=== PATIENT | male | born 2000 | race Caucasian/White ===

== ENCOUNTER → 2023-10-14 | Emergency (ER) | payer SELFPAY ==
[2023-10-14 23:41] LABS: Hematocrit 45.6 % (39.6-49.0); Lymphocytes % 13.2 % (15.3-44.8); MCV 79.7 fL (80-100); MPV 9.7 fL (7.6-11.3); Platelets 231 thou/uL (152-406); RBC Red Blood Cell Count 5.72 M/uL (4.33-5.43)
[2023-10-15 01:21] LABS: Specific Gravity < 1.005 (1.005-1.030); Urine Bilirubin NEGATIVE (Negative); Urine Blood Negative (Negative); Urine Clarity Clear (Clear); Urine Color Colorless (Yellow); Urine Glucose NEGATIVE (Negative); Urine Protein NEGATIVE (Negative); Urine Urobilinogen Normal (Normal); Urine pH 6.5 (5.0-7.0)
[2023-10-15 03:39] LABS: Potassium 3.3 mEq/L (3.5-5.1)
[2023-10-15 03:40] LABS: Albumin 3.3 g/dL (3.4-5.0); Bilirubin Total 0.5 mg/dL (0.2-1.0); Protein, Total 8.2 g/dL (6.4-8.2)
--- NOTE | 2023-10-15 04:53 | EDPHYS ---
Physician Documentation [facility] Name: Tariq Delgado Age: 22 yrs Sex: Male : 2000 Arrival Date: 10/14/2023 Time: 21:58 Bed 5 Private MD: ED Physician Villa Escalona HPI: 10/14 22:40 This 22 yrs old Male presents to ER via Ambulatory with complaints of Swollen Glands, cp Mother is concerned patient has possible yeast infection. 22:40 The patient or guardian complains of enlarged lymph nodes. The symptoms are located cp left side of neck. 22:40 Onset: The symptoms/episode began/occurred at an unknown time. Context: The neck cp injury/problem resulted from from unknown cause. Associated signs and symptoms: Pertinent positives: fatigue over the past month, Pertinent negatives: fever, headache, weight loss, change in bowel habits. Severity of symptoms: in the emergency department the symptoms are unchanged, despite home interventions. Historical: - Allergies: 22:34 No Known Allergies; vc1 - Home Meds: 22:34 None [Active]; vc1 - PMHx: 22:34 None; vc1 - PSHx: 22:34 None; vc1 - Immunization history:: Adult Immunizations up to date, Flu vaccine is not up to date. - Social history:: Smoking status: Patient denies any tobacco usage or history of. ROS: 22:45 Constitutional: Positive for fatigue, malaise, Negative for body aches, chills, fever, cp poor PO intake, 22:45 Eyes: Negative for injury, pain, redness, and discharge, cp 22:45 ENT: Negative for drainage from ear(s), ear pain, sore throat, difficulty swallowing, difficulty handling secretions, 22:45 Cardiovascular: Negative for chest pain, palpitations, 22:45 Respiratory: Positive for shortness of breath, Negative for cough, wheezing, 22:45 Abdomen/GI: Negative for abdominal pain, vomiting, diarrhea, constipation, anorexia, black/tarry stool, rectal bleeding, 22:45 Neuro: Negative for altered mental status, headache, syncope, 22:45 All other systems are negative, Exam: 22:30 Constitutional: The patient appears in no acute distress, alert, awake, cp non-diaphoretic, non-toxic, well developed, well nourished, 22:30 Head/Face: Normocephalic, atraumatic. cp 22:30 Eyes: Periorbital structures: appear normal, Conjunctiva: normal, no exudate, no injection, Sclera: no appreciated abnormality, Lids and lashes: appear normal, bilaterally, 22:30 ENT: External ear(s): are unremarkable, Ear canal(s): are normal, clear, TM's: dullness, bilaterally, Nose: is normal, Mouth: Lips: moist, Oral mucosa: pink and intact, moist, Posterior pharynx: Airway: no evidence of obstruction, patent, Tonsils: are normal in appearance, swelling, is not appreciated, erythema, is not appreciated, exudate, is not appreciated, 22:30 Neck: Lymph nodes: lymphadenopathy is appreciated, left side of neck, 22:30 Chest/axilla: Inspection: normal, Palpation: is normal, no crepitus, no tenderness, 22:30 Cardiovascular: Rate: normal, Rhythm: regular, 22:30 Respiratory: the patient does not display signs of respiratory distress, Respirations: normal, no use of accessory muscles, no retractions, labored breathing, is not present, Breath sounds: are clear throughout, no decreased breath sounds, no stridor, no wheezing, 22:30 Abdomen/GI: Inspection: abdomen appears normal, Bowel sounds: active, all quadrants, Palpation: abdomen is soft and non-tender, in all quadrants, no appreciated organomegaly, 22:30 Back: pain, is absent, ROM is normal, 22:30 Skin: no rash present. 22:30 Neuro: Orientation: to person, place \T\ time. Mentation: is normal, Motor: moves all fours, strength is normal, Vital Signs: 22:30 BP 137 / 86; Pulse 95; Resp 17; Pulse Ox 99% ; Weight 63.5 kg; Height 5 ft. 10 in. ; vc1 Pain 0/10; 23:16 BP 133 / 86; Pulse 91; Pulse Ox 100% on R/A; nw1 23:45 BP 128 / 86; Pulse 87; Pulse Ox 100% on R/A; nw10/15 00:00 BP 138 / 98; Pulse 93; Resp 19; Pulse Ox 100% on R/A; nw1 00:15 BP 137 / 106; Pulse 95; Resp 19; Pulse Ox 100% on R/A; nw1 00:30 BP 132 / 98; Pulse 95; Pulse Ox 100% on R/A; nw1 01:00 BP 127 / 109; Pulse 95; Resp 17; Pulse Ox 100% on R/A; nw1 01:30 BP 127 / 93; Pulse 93; Resp 18; Pulse Ox 100% ; nw1 02:00 BP 134 / 91; Pulse 93; Resp 16; Pulse Ox 100% ; nw1 02:30 BP 125 / 89; Pulse 87; Resp 19; Pulse Ox 100% ; nw1 03:00 BP 137 / 96; Pulse 99; Pulse Ox 100% on R/A; nw1 03:30 BP 130 / 96; Pulse 91; Resp 19; Pulse Ox 100% ; nw1 04:00 BP 153 / 84; Pulse 95; Pulse Ox 100% on R/A; nw1 04:30 BP 129 / 79; Pulse 92; Resp 18; Pulse Ox 100% on R/A; nw1 05:00 BP 139 / 98; Pulse 106; Pulse Ox 100% on R/A; nw1 05:30 BP 133 / 91; Pulse 106; Resp 19; Pulse Ox 99% ; nw1 06:09 BP 137 / 92; Pulse 102; Resp 19; Pulse Ox 100% on R/A; nw1 10/14 22:30 Body Mass Index 20.09 (63.50 kg, 177.8 cm) [facility] 10/14 22:30 Pain Scale: Adult vc1 Bethany Coma Score: 10/14 23:16 Eye Response: spontaneous(4). Motor Response: obeys commands(6). Verbal Response: nw1 oriented(5). Total: 15. MDM: 22:23 Patient medically screened. cp 10/15 00:00 Differential diagnosis: strep throat, malignancy, mono, abscess. cp 05:36 Data reviewed: vital signs, nurses notes, lab test result(s), radiologic studies, CT cp scan, plain films. Management of patient was discussed with the following: Hospitalist: DR Coleman \T\[facility]. Counseling: I had a detailed discussion with the patient and/or guardian regarding the historical points, exam findings, and any diagnostic results supporting the discharge/admit diagnosis, lab results, radiology results, the need to transfer to another facility. 10/14 22:32 Order name: Strep cp 10/14 22:32 Order name: [place] Screen Profile; Complete Time: 05:03 cp 10/14 22:32 Order name: CBC with Diff; Complete Time: 00:09 cp 10/15 00:09 Interpretation: Normal except: WBC 22.60; RBC 5.72; MCV 79.7; MCH 26.8; MACRINA% 77.9; LYM% cp 13.2; NEUT A 17.6; MNA 1.5. 10/14 22:32 Order name: CMP; Complete Time: 05:03 cp 10/15 05:05 Interpretation: Normal except: K 3.3; BUN 4; AST 7; ALT 14; ALB 3.3; GLOB 4.9; A/G 0.7. cp 10/14 22:32 Order name: Urinalysis w/ reflexes; Complete Time: 02:12 10/14 22:32 Order name: SARS-COV-2 RT PCR; Complete Time: 00:17 cp 10/15 00:41 Order name: Throat Culture EDHI 10/14 22:32 Order name: XRAY Chest Pa And Lat (2 Views) 10/15 01:08 Order name: CT Chest, Abdomen, Pelvis - W/Contrast 10/14 22:32 Order name: IV Saline Lock; Complete Time: 23:21 cp 10/14 22:32 Order name: Labs collected and sent; Complete Time: 23:21 cp Administered Medications: No medications were administered Disposition Summary: 10/15/23 04:52 Transfer Ordered Notes: Transfer Location: [facility] cp Reason: Higher level of care cp Condition: Stable cp Problem: new cp Symptoms: have improved cp Accepting Physician: DR Tyler(10/15/23 07:12) nw1 Diagnosis - Elevated white blood cell count, unspecified cp - Enlarged lymph nodes, unspecified cp - Mass of Mediastinum cp Forms: - Medication Reconciliation Form cp - SBAR form cp Signatures: Dispatcher [employer] EDHI Villa Putnam PA PA cp Calcote, Vanessa, RN RN vc1 Dayana Whitt RN RN nw1 Corrections: (The following items were deleted from the chart) 05:46 04:52 Doctor cp cp 05:48 05:36 Management of patient was discussed with the following: Hospitalist: DR Thurman cp \T\[facility]. cp 07:12 05:46 DR Tyler cp nw1
--- NOTE | 2023-10-15 04:53 | ER ---
Nurse's Notes [facility] Name: Tariq Delgado Age: 22 yrs Sex: Male : 2000 Arrival Date: 10/14/2023 Time: 21:58 Bed 5 Private MD: Diagnosis: Elevated white blood cell count, unspecified;Enlarged lymph nodes, unspecified;Mass of Mediastinum Presentation: 10/14 22:30 Chief complaint: Parent and/or Guardian states: He's been sick since and has vc1 a lump in the front of his neck and on the left side of his neck. Coronavirus screen: Vaccine status: Patient reports being unvaccinated. fatigue, fever, vomiting. Client presents with at least one sign or symptom that may indicate coronavirus-19. Ebola Screen: Patient negative for fever greater than or equal to 101.5 degrees Fahrenheit, and additional compatible Ebola Virus Disease symptoms Patient denies exposure to infectious person. Patient denies travel to an Ebola-affected area in the 21 days before illness onset. No symptoms or risks identified at this time. Initial Sepsis Screen: Does the patient meet any 2 criteria? No. Patient's initial sepsis screen is negative. Does the patient have a suspected source of infection? No. Patient's initial sepsis screen is negative. Risk Assessment: Do you want to hurt yourself or someone else? Patient reports no desire to harm self or others. Onset of symptoms was September 11, 2023. 22:30 Method Of Arrival: Ambulatory vc1 22:30 Acuity: HELGA 3 vc1 10/15 00:30 Acuity: HELGA 2 nw1 Triage Assessment: 10/14 22:36 General: Appears. vc1 22:40 General: Appears in no apparent distress. uncomfortable, ill, slender, Behavior is vc1 calm, cooperative, appropriate for age, Reports fever for > 3 days, feeling ill for > 3 days, fatigue for >3 days. Pain: Denies pain. EENT: darkness under eyes. Reports nasal congestion. Neuro: Level of Consciousness is awake, alert, obeys commands, lethargic, Oriented to person, place, time, situation, Appropriate for age. Cardiovascular: No deficits noted. Patient's skin is warm and dry. Respiratory: Reports shortness of breath cough that is pain with cough Airway is patent Respiratory effort is even, unlabored, Respiratory pattern is regular, symmetrical, Onset: The symptoms/episode began/occurred at an unknown time. GI: No deficits noted. No signs and/or symptoms were reported involving the gastrointestinal system. : No deficits noted. No signs and/or symptoms were reported regarding the genitourinary system. Derm: lymph nodes palpated and enlarged. Musculoskeletal: No deficits noted. No signs and/or symptoms reported regarding the musculoskeletal system. Historical: - Allergies: 22:34 No Known Allergies; vc1 - Home Meds: 22:34 None [Active]; vc1 - PMHx: 22:34 None; vc1 - PSHx: 22:34 None; vc1 - Immunization history:: Adult Immunizations up to date, Flu vaccine is not up to date. - Social history:: Smoking status: Patient denies any tobacco usage or history of. Screenin:35 [facility] ED Fall Risk Assessment (Adult) History of falling in the last 3 months, vc1 including since admission No falls in past 3 months (0 pts) Confusion or Disorientation No (0 pts) Intoxicated or Sedated No (0 pts) Impaired Gait No (0 pts) Mobility Assist Device Used No (0 pt) Altered Elimination No (0 pt) Score/Fall Risk Level 0 - 2 = Low Risk Oriented to surroundings, Maintained a safe environment, Educated pt \\T\\ family on fall prevention, incl call for assistance when getting out of bed. Abuse screen: Denies threats or abuse. Nutritional screening: No deficits noted. Tuberculosis screening: No symptoms or risk factors identified. Assessment: 22:43 Reassessment: Pt noted in room 5 at this time. No report received. Assuming patient at nw1 this time. 22:46 Reassessment: Lab called for COVID PCR test to complete specimen collections. la4 22:57 Reassessment: Pt to Xray at this time via wheelchair and marine services technician. nw1 23:03 Reassessment: Pt returned from Xray via wheelchair and marine services technician. nw1 23:03 General: Appears in no apparent distress. comfortable, well groomed, well developed, nw1 well nourished, Behavior is calm, cooperative, appropriate for age. Pain: Complains of pain in thyroid cartilage. Neuro: Level of Consciousness is awake, alert, obeys commands, Oriented to person, place, time, situation, Appropriate for age. Cardiovascular: Reports None Denies chest pain, diaphoresis, fatigue, lightheadedness, nausea, palpitations, shortness of breath, syncope, vomiting. Respiratory: No deficits noted. Denies cough, shortness of breath labored breathing, pain with respiration, pain with cough, pain with movement, air hunger. GI: No deficits noted. No signs and/or symptoms were reported involving the gastrointestinal system. : No deficits noted. No signs and/or symptoms were reported regarding the genitourinary system. EENT: Throat patient states lump in throat since [place]. . Derm: No deficits noted. No signs and/or symptoms reported regarding the dermatologic system. Musculoskeletal: No deficits noted. No signs and/or symptoms reported regarding the musculoskeletal system. 10/15 03:06 Reassessment: Lab called due to missing CMP. Per "D" in lab, blood is not found. Red, nw1 Green, Blue, and Lavender tube was sent via tubing system at 2344 on 10/13/23. Charge nurse Emperatriz notified of this. 03:17 Reassessment: Blood (red and green top) obtained by , [facility] at this time and sent to [facility] lab via tubing system at this time. 06:08 Reassessment: Report attempted [id number]. Nurse unavailable at this time. Vital Signs: 10/14 22:30 BP 137 / 86; Pulse 95; Resp 17; Pulse Ox 99% ; Weight 63.5 kg; Height 5 ft. 10 in. ; vc1 Pain 0/10; 23:16 BP 133 / 86; Pulse 91; Pulse Ox 100% on R/A; 23:45 BP 128 / 86; Pulse 87; Pulse Ox 100% on R/A; 10/15 00:00 BP 138 / 98; Pulse 93; Resp 19; Pulse Ox 100% on R/A; 00:15 BP 137 / 106; Pulse 95; Resp 19; Pulse Ox 100% on R/A; 00:30 BP 132 / 98; Pulse 95; Pulse Ox 100% on R/A; nw 01:00 BP 127 / 109; Pulse 95; Resp 17; Pulse Ox 100% on R/A; 01:30 BP 127 / 93; Pulse 93; Resp 18; Pulse Ox 100% ; nw1 02:00 BP 134 / 91; Pulse 93; Resp 16; Pulse Ox 100% ; nw1 02:30 BP 125 / 89; Pulse 87; Resp 19; Pulse Ox 100% ; nw1 03:00 BP 137 / 96; Pulse 99; Pulse Ox 100% on R/A; nw1 03:30 BP 130 / 96; Pulse 91; Resp 19; Pulse Ox 100% ; nw1 04:00 BP 153 / 84; Pulse 95; Pulse Ox 100% on R/A; nw1 04:30 BP 129 / 79; Pulse 92; Resp 18; Pulse Ox 100% on R/A; nw1 05:00 BP 139 / 98; Pulse 106; Pulse Ox 100% on R/A; nw1 05:30 BP 133 / 91; Pulse 106; Resp 19; Pulse Ox 99% ; nw1 06:09 BP 137 / 92; Pulse 102; Resp 19; Pulse Ox 100% on R/A; nw1 10/14 22:30 Body Mass Index 20.09 (63.50 kg, 177.8 cm) [facility] 10/14 22:30 Pain Scale: Adult vc1 Bethany Coma Score: 10/14 23:16 Eye Response: spontaneous(4). Motor Response: obeys commands(6). Verbal Response: nw1 oriented(5). Total: 15. ED Course: 22:04 Patient arrived in ED. jj6 22:18 Villa Putnam PA is PHCP. cp 22:18 Villa Escalona MD is Attending Physician. cp 22:34 Triage completed. vc1 22:35 Arm band placed on left wrist. vc1 22:35 Patient has correct armband on for positive identification. Bed in low position. Call vc1 light in reach. Pulse ox on. NIBP on. 23:00 XRAY Chest Pa And Lat (2 Views) In Process Unspecified. EDMS 23:03 Provided Education on: POC. nw1 23:03 No provider procedures requiring assistance completed. Missed attempt(s): 20 gauge in nw1 right forearm. blood obtained. Notified Villa WASHBURN regarding blown IV. Per [facility], patient does not require IV at this time. . Bleeding controlled, band aid applied, catheter tip intact. 23:21 CBC with Diff Sent. nw 23:21 CMP Sent. nw 23:21 SARS-COV-2 RT PCR Sent. nw 23:21 Strep Sent. nw1 23:21 Cole Screen Profile Sent. nw10/15 03:18 Inserted saline lock: 20 gauge in right antecubital area, using aseptic technique. mc5 Blood collected. 03:58 CT Chest, Abdomen, Pelvis - W/Contrast In Process Unspecified. EDMS 04:45 initiated transfer with [facility]. rv1 05:57 administrative approval given to [facility] by Arielle Downing/ patient has been accepted eb to [facility] bed 744/ Dr. Tyler has accepted the patient in transfer/ report to be called [phone]. 06:20 Dayana Whitt, RN is Primary Nurse. nw1 06:24 Report given to MAYURI Meade. nw 06:47 [facility] called for transport they are unable to take transfer / [facility] eb called ETA 25 min. Administered Medications: No medications were administered Medication: 10/14 22:36 VIS not applicable for this client. vc1 Outcome: 10/15 04:52 ER care complete, transfer ordered by MD. cp 06:39 Transferred by ground EMS to [facility], Transfer form completed. nw1 X-rays sent w/ patient. 06:39 Condition: stable 06:39 Instructed on the need for admit, 07:12 Patient left the ED. nw1 Signatures: Dispatcher [employer] EDKY Villa Putnam PA PA cp Botello, Elizabeth eb Jeffries, Jennifer jj6 Emperatriz Dee RN RN vc1 Dianne Babcock rv1 Elise Freeman 5 Maurice Alvarez RN RN la4 Dayana Whitt, MAYURI RN nw1 Corrections: (The following items were deleted from the chart) 10/14 22:57 22:56 Reassessment: nw1 10/15 05:51 04:45 initiated tranfer rv1 rv1 05:52 04:45 initiated transfer rv1 rv1
[2023-10-15 09:20] VITALS: O2SAT 100
[2023-10-15 09:53] VITALS: BP 137/92
--- NOTE | 2023-10-16 11:13 | RAD REPORT ---
EXAM DESCRIPTION: CT - Chest Abdomen Pelvis W Cont - 10/15/2023 7:16 am CLINICAL HISTORY: The patient is 22 years old and is Male; COUGH TECHNIQUE: Axial computed tomography images of the chest, abdomen and pelvis with intravenous contra st. Sagittal and coronal reformatted images were created and reviewed. This CT exam was performed using one or more of the following dose reduction techniques: automated exposure control, adjustme nt of the mA and/or kV according to patient size, and/or use of iterative reconstruction technique. COMPARISON: No relevant prior studies available. FINDINGS: CHEST: Lungs: Unremarkable. No mass. No consolidation. Pleural space: Unremarkable. No significant effusion. No pneumothorax. Heart: Unremarkable. No cardiomegaly. No significant pericardial effusion. No significant c oronary artery calcifications. Mediastinum: There is a 4 x 6 x 10 cm solid and cystic mass in the anterior mediastinum. Bulky mediastinal lymphadenopathy extending into the lower neck. ABDOMEN: Liver: Unremarkable. No mass. Gallbladder and bile ducts: Unremarkable. No calcified stones. No ductal dilation. Pancreas: Unremarkable. No ductal dilation. No mass. Spleen: Unremarkable. No splenomegaly. Adrenals: Unremarkable. No mass. Kidneys and ureters: Unremarkable. No hydronephrosis. No solid mass. Stomach and bowel: Unremarkable. No obstruction. No mucosal thickening. PELVIS: Appendix: No findings to suggest acute appendicitis. Bladder: Unremarkable. No mass. Reproductive: Unremarkable as visualized. CHEST, ABDOMEN and PELVIS: Intraperitoneal space: Unremarkable. No significant fluid collection. No free air. Bones/joints: Unremarkable. No acute fracture. No dislocation. Soft tissues: Gynecomastia. Vasculature: Unremarkable. No aortic aneurysm. Lymph nodes: Enlarged 1.3 cm right axillary lymph node. IMPRESSION: 1. There is a 4 x 6 x 10 cm solid and cystic mass in the anterior mediastinum. 2. Bulky mediastinal lymphadenopathy extending into the lower neck. 3. Enlarged 1.3 cm right axillary lymph node. Electronically signed by: Juan Chase MD 10/15/2023 04:36 AM NUT SHELLER Due to temporary technical issues with the PACS/Fluency reporting system, reports are being signed by the in house radiologist without review as a courtesy to ensure prompt reporting. The interpreting r adiologist is fully responsible for the content of the report.
--- NOTE | 2023-10-16 11:22 | RAD REPORT ---
EXAM DESCRIPTION: RAD - Chest Pa And Lat (2 Views) - 10/14/2023 10:59 pm CLINICAL HISTORY: COUGH TECHNIQUE: Frontal and lateral views of the chest. COMPARISON: No relevant prior studies available. FINDINGS: Lungs: Unremarkable. No consolidation. Pleural space: Unremarkable. No pneumothorax. Heart: Unremarkable. No cardiomegaly. Mediastinum: Unremarkable. Normal mediastinal contour. Bones/joints: Unremarkable. No acute fracture. IMPRESSION: No acute disease. Electronically signed by: Thien Neves MD 10/14/2023 11:23 PM COMBINER OPERATOR Due to temporary technical issues with the PACS/Fluency reporting system, reports are being signed by the in house radiologist without review as a courtesy to ensure prompt reporting. The interpreting r adiologist is fully responsible for the content of the report.
== END ==
LOC: ER 21:58
DX: D72.829 Elevated white blood cell count, unspecified (principal); R59.9 Enlarged lymph nodes, unspecified; D38.3 Neoplasm of uncertain behavior of mediastinum
CPT/HCPCS: 36415; 71046; 71260; 74177; 81003; 85025; 86308; 87070; 87081; 87635; Q9967

== ENCOUNTER 2024-03-04 21:34 | Emergency (ER) | payer SELFPAY ==
[2024-03-04] MEDS ORDERED: NA CHLORIDE 0.9% 2,000 ML ONE (22:35)
[2024-03-04] MEDS ORDERED: ACETAMINOPHEN 500 MG TAB ONE (22:35)
[2024-03-04 22:52] LABS: Absolute Basophils 0.4 K/uL (0-0.5); Absolute Lymphocytes (CBC) 2.7 K/uL (0.7-4.9); Absolute Monocytes 3.3 K/uL (0.1-1.3); Basophils % 0.7 % (0-1.3); Eosinophils % 0.1 % (0-4.4); Lymphocytes % 4.6 % (15.3-44.8); MCH 28.2 pg (27.0-35.0); MCHC 33.4 g/dL (32.0-36.0); MCV 84.4 fL (80-100); MPV 7.9 fL (7.6-11.3); Monocytes % 5.7 % (3.3-12.3); Neutrophils % 88.9 % (41.7-73.7); Platelets 146 thou/uL (152-406); RBC Red Blood Cell Count 4.27 M/uL (4.33-5.43); Red Cell Distribution Width 17.5 % (12.1-15.2)
[2024-03-04 22:54] LABS: PT Prothrombin Time 14.8 SECONDS (9.5-12.5); PTT, Activated Partial Thromb 30.5 SECONDS (24.3-36.9); Protime INR 1.36
[2024-03-04 23:02] LABS: Albumin 3.9 g/dL (3.4-5.0); Albumin/Globulin Ratio 1.1 (1.1-1.8); Anion Gap 9.3 mEq/L (5.0-15.0); Globulin 3.4 g/dL (2.3-3.5); Potassium 3.3 mEq/L (3.5-5.1); Protein, Total 7.3 g/dL (6.4-8.2)
[2024-03-04 23:20] LABS: SARS-CoV-2 Antigen CONTROL BLUE LINE VIS/BG OK; SARS-CoV-2 Antigen Rapid Res Negative (Negative)
[2024-03-04] MEDS ORDERED: VANCOMYCIN 1 GM/VIAL ONE (23:25)
[2024-03-04] MEDS ORDERED: NA CHLORIDE 0.9% 250 ML ONE ×2 (23:25→23:45)
[2024-03-04] MEDS ORDERED: CEFEPIME 1 GM/VIAL ONE (23:26)
[2024-03-04 23:27] LABS: Band Neutrophils 22 % (0-1); Differential Total Cells Count 100; Lymphocytes 6 % (15-42); Metamyelocytes 2 % (0-0); Monocytes 11 % (0-10); Myelocytes 2 % (0-0); Reactive Lymphocytes 10 %; Segmented Neutrophils 45 % (40-80)
[2024-03-04 23:28] LABS: Blood Morphology Comment NOT SEEN (NOT SEEN); Platelet Estimate ADEQ
[2024-03-05 00:35] LABS: Specific Gravity 1.012 (1.005-1.030); Sqamous Epithelial <5 /HPF (None Seen); Urine Bacteria None Seen /HPF (<20); Urine Bilirubin NEGATIVE (Negative); Urine Blood Negative (Negative); Urine Clarity Clear (Clear); Urine Color Light-Yellow (Yellow); Urine Culture Reflex Order NOT NEEDED; Urine Glucose NEGATIVE (Negative); Urine Ketones NEGATIVE (Negative); Urine Microscopic Reflex YN ORDER UMIC; Urine Nitrite NEGATIVE (Negative); Urine Protein NEGATIVE (Negative); Urine RBC <5 /HPF (None Seen); Urine Urobilinogen Normal (Normal); Urine WBC <5 /HPF (<5)
--- NOTE | 2024-03-05 01:52 | EDPHYS ---
Physician Documentation [facility] Name: Tariq Delgado Age: 23 yrs Sex: Male : 2000 Arrival Date: 03/04/2024 Time: 21:34 Bed 2 Private MD: ED Physician Sandeep Robles HPI: 03/04 22:51 This 23 yrs old Male presents to ER via Ambulatory with complaints of Fever, PT sb4 CURRENTLY HAS CANCER. 22:51 fever started yesterday, been feeling poorly since. has not taken any medications. sb4 endorses headache but no other associated signs and symptoms. denies cough, sinus congestion, sore throat, abdominal pain, GI or urinary symptoms. is currently on chemotherapy every 2 weeks for non hodgkins lymphoma, last received treatment 12 days ago. oncologist is at [facility]. Historical: - Allergies: 23:37 No Known Allergies; lc8 - Immunization history:: Adult Immunizations up to date. - Infectious Disease History:: Denies. - Social history:: Smoking status: Patient denies any tobacco usage or history of. - Family history:: not pertinent. ROS: 22:51 Cardiovascular: Negative for chest pain, palpitations, and edema, sb4 22:51 Constitutional: Positive for fever, malaise, 22:51 All other systems are negative, 22:51 Neuro: Positive for headache, sb4 Exam: 22:51 Head/Face: Normocephalic, atraumatic. Eyes: Extra-ocular motions intact. Periorbital sb4 areas with no swelling, redness, or edema. Respiratory: Lungs have equal breath sounds bilaterally, clear to auscultation and percussion. No rales, rhonchi or wheezes noted. No increased work of breathing, no retractions or nasal flaring. Abdomen/GI: Soft, non-tender, no distension. 22:51 Constitutional: The patient appears alert, awake, obviously ill, pale, 22:51 Cardiovascular: Rate: tachycardic, Rhythm: regular, 22:51 Skin: Appearance: Temperature: warm, Vital Signs: 21:57 BP 105 / 74; Pulse 136; Resp 19; Temp 103.1; Pulse Ox 100% on R/A; Weight 66.68 kg; kd3 23:00 BP 117 / 82; Pulse 108; Resp 17; Pulse Ox 100% on R/A; 8 03/05 00:00 BP 112 / 66; Pulse 104; Temp 100.9(O); Pulse Ox 100% on R/A; 8 02:00 BP 110 / 77; Pulse 98; Pulse Ox 98% on R/A; 8 03:00 BP 117 / 74; Pulse 110; Resp 16; Pulse Ox 100% on R/A; 8 05:00 BP 98 / 62; Pulse 91; Temp 98.6; Pulse Ox 99% on R/A; 8 MDM: 03/04 21:47 Patient medically screened. [facility] 03/05 01:23 Data reviewed: vital signs, nurses notes, lab test result(s), EKG, radiologic studies, sb4 I have discussed the patient's presentation/case with the attending Emergency Department Physician;. Care significantly affected by the following chronic conditions: Cancer. Counseling: I had a detailed discussion with the patient and/or guardian regarding the historical points, exam findings, and any diagnostic results supporting the discharge/admit diagnosis, lab results, radiology results, the need to transfer to another facility, for higher level of care, [facility] does not immediately have the required specialist. 03/04 22:04 Order name: Blood Culture Adult (2) [facility] 03/04 22:04 Order name: CBC with Diff; Complete Time: 23:30 [facility] 03/04 22:04 Order name: CMP; Complete Time: 23:02 [facility] 03/04 22:04 Order name: Lactate w/ 2H reflex if indic.; Complete Time: 23:03 [facility] 03/04 22:04 Order name: Protime (+inr); Complete Time: 22:55 [facility] 03/04 22:04 Order name: Ptt, Activated; Complete Time: 22:55 [facility] 03/04 22:04 Order name: Urinalysis w/ reflexes; Complete Time: 00:38 [facility] 03/04 22:21 Order name: Strep [facility] 03/04 22:56 Order name: Manual Differential; Complete Time: 23:30 [facility] 03/04 22:59 Order name: SARS RAPID; Complete Time: 23:21 [facility] 03/04 23:00 Order name: Influenza Screen (A ; Complete Time: 23:21 [facility] 03/04 23:23 Order name: Throat Culture [facility] 03/04 22:04 Order name: Chest Single View XRAY [facility] 03/04 23:26 Order name: CT Head Brain wo Cont [facility] 03/04 23:26 Order name: CT Chest, Abdomen, Pelvis - W/Contrast [facility] 03/04 22:04 Order name: Accucheck; Complete Time: 23:39 sb4 03/04 22:04 Order name: Cardiac monitoring; Complete Time: 23:39 4 03/04 22:04 Order name: EKG - Nurse/Tech; Complete Time: 23:39 4 03/04 22:04 Order name: IV Saline Lock - Large Bore; Complete Time: 22:36 sb4 03/04 22:04 Order name: Labs collected and sent; Complete Time: 22:36 4 03/04 22:04 Order name: O2 Per Protocol; Complete Time: 23:39 4 03/04 22:04 Order name: O2 Sat Monitoring; Complete Time: 22:47 4 03/04 22:04 Order name: Vital Signs; Complete Time: 23:39 sb4 Administered Medications: 03/04 22:45 Drug: Acetaminophen PO 1000 mg PO once Route: PO; [facility] 03/05 00:00 Follow up: Response: Temperature is decreased [facility] 03/04 22:47 Drug: NS 0.9% IV (30 ml/kg) 30 ml/kg IV at bolus once; Sepsis Protocol Route: IV; Rate: lc8 bolus; Site: left antecubital; 03/05 00:00 Follow up: IV Status: Completed infusion; IV Intake: 2000ml [facility] 03/04 23:35 Drug: Cefepime IVPB 1 grams IVPB at 200 ml/hr once over 30 mins; (mix in NS 100 mL) lc8 Route: IVPB; Rate: 200 ml/hr; Infused Over: 30 mins; Site: left antecubital; 03/05 00:00 Follow up: Response: No adverse reaction; IV Status: Completed infusion lc8 00:00 Drug: vancoMYCIN IVPB 1 grams IVPB once over 2 hrs Route: IVPB; Infused Over: 2 hrs; lc8 Site: left antecubital; 01:30 Follow up: Response: No adverse reaction; IV Status: Completed infusion; IV Intake: lc8 250ml 02:22 Drug: Ibuprofen PO 800 mg PO once Route: PO; 8 03:30 Follow up: Response: Temperature is decreased 8 02:22 Drug: NS 0.9% IV 1000 ml IV at 125 ml/hr continuous Route: IV; Rate: 125 ml/hr; Site: lc8 left antecubital; Disposition: 07:49 Co-signature as Attending Physician, Sandeep Robles MD I agree with the assessment sp4 and plan of care. I reviewed the patient's care provided by the Advanced Practice Provider and agree with the diagnosis and treatment plan. Disposition Summary: 03/05/24 01:51 Transfer Ordered Notes: Transfer Location: [facility] sb4 Reason: Higher level of care sb4 Condition: Fair sb4 Problem: new sb4 Symptoms: have improved sb4 Accepting Physician: oncologist(03/05/24 05:19) lc8 Diagnosis - Fever, unspecified sb4 - Elevated white blood cell count sb4 - Non-Hodgkin lymphoma sb4 - Non-Hodgkin's lymphoma sb4 Forms: - Medication Reconciliation Form sb4 - SBAR form sb4 Signatures: Dispatcher [employer] EDJesica Boyce, RN RN kd3 Antonieta Smith PA-C PAYaritza sb4 Sandeep Robles MD MD sp4 Kelsea De La Paz RN RN lc8 Corrections: (The following items were deleted from the chart) 03/04 22:04 22:04 BLOOD CULTURE*+BA.LAB.BRZ ordered. EDMS EDMS 22:04 22:04 CBC+H.LAB.BRZ ordered. EDMS EDMS 22:04 22:04 COMPREHENSIVE METABOLIC PANEL+C.LAB.BRZ ordered. EDMS EDMS 22:04 22:04 LACTATE+C.LAB.BRZ ordered. EDMS EDMS 22:04 22:04 PROTIME (+INR)+COAG.LAB.BRZ ordered. EDMS EDMS 22:04 22:04 PTT, ACTIVATED+COAG.LAB.BRZ ordered. EDMS EDMS 22:04 22:04 Urinalysis+U.LAB.BRZ ordered. EDMS EDMS 22:04 22:04 Chest Single View+RAD.RAD.BRZ ordered. EDMS EDMS 23:00 22:21 COVID-19/FLU A+B/RSV+MOL.LAB.BRZ ordered. EDMS EDMS 03/05 01:58 01:51 oncologist sb4 sb4 01:58 01:58 oncologist sb4 sb4 05:19 01:58 oncologist sb4 lc8
--- NOTE | 2024-03-05 01:52 | ER ---
Nurse's Notes [facility] Name: Tariq Delgado Age: 23 yrs Sex: Male : 2000 Arrival Date: 03/04/2024 Time: 21:34 Bed 2 Private MD: Diagnosis: Fever, unspecified;Elevated white blood cell count;Non-Hodgkin's lymphoma Presentation: 03/04 21:57 Chief complaint: Patient states: I am actively getting chemo treatment stage 2 non kd3 Hodgkin's lymphoma. I spiked a fever last night and started to feel real bad. I have not been around any sick contact. I have not taken anything for my fever. My last Chemo treatment was on the and i am due for treatment on the . I get my chemo treatment at an out patient clinic attached to the [facility]. The address is [address] [place] [address]. Coronavirus screen: Vaccine status: Patient reports being unvaccinated. Ebola Screen: No symptoms or risks identified at this time. Initial Sepsis Screen: Does the patient meet any 2 criteria? Temp <36.0*C (96.8*F)) or > 38.3*C (100.9*F). HR > 90 bpm. Yes. Risk Assessment: Do you want to hurt yourself or someone else? Patient reports no desire to harm self or others. Onset of symptoms was March 04, 2024. 21:57 Method Of Arrival: Ambulatory 3 21:57 Acuity: HELGA 2 kd3 03/05 05:00 Initial Sepsis Screen: Does the patient meet any 2 criteria? Does the patient have a lc8 suspected source of infection? No. Patient's initial sepsis screen is negative. Triage Assessment: 03/04 21:57 General: Appears ill, Behavior is calm, cooperative. Pain: Denies pain. kd3 Historical: - Allergies: 23:37 No Known Allergies; lc8 - Immunization history:: Adult Immunizations up to date. - Infectious Disease History:: Denies. - Social history:: Smoking status: Patient denies any tobacco usage or history of. - Family history:: not pertinent. Screenin:10 [facility] ED Fall Risk Assessment (Adult) History of falling in the last 3 months, lc8 including since admission No falls in past 3 months (0 pts) Confusion or Disorientation No (0 pts) Intoxicated or Sedated No (0 pts) Impaired Gait No (0 pts) Mobility Assist Device Used No (0 pt) Altered Elimination No (0 pt) Score/Fall Risk Level 0 - 2 = Low Risk. Abuse screen: Denies threats or abuse. Denies injuries from another. Nutritional screening: No deficits noted. Tuberculosis screening: No symptoms or risk factors identified. Assessment: 22:10 General: Appears in no apparent distress. ill, Behavior is calm, cooperative, lc8 appropriate for age. 22:10 Pain: Denies pain. Neuro: Level of Consciousness is awake, alert, obeys commands, lc8 Oriented to person, place, time, situation. Cardiovascular: Capillary refill < 3 seconds. Cardiovascular: Rhythm is sinus tachycardia. Respiratory: Airway is patent Respiratory effort is even, unlabored, Respiratory pattern is regular, symmetrical. GI: Patient currently denies. EENT: No deficits noted. Denies. Derm: Denies. Musculoskeletal: Denies. 23:00 Reassessment: No changes from previously documented assessment. Patient and/or family lc8 updated on plan of care and expected duration. Pain level reassessed. 03/05 00:00 Reassessment: Patient states feeling better. lc8 01:00 Reassessment: No changes from previously documented assessment. Patient and/or family lc8 updated on plan of care and expected duration. Pain level reassessed. 02:00 Reassessment: No changes from previously documented assessment. Patient and/or family lc8 updated on plan of care and expected duration. Pain level reassessed. 03:00 Reassessment: No changes from previously documented assessment. Patient and/or family lc8 updated on plan of care and expected duration. Pain level reassessed. Patient is alert, oriented x 3, equal unlabored respirations, skin warm/dry/pink. 04:46 Reassessment: report called to [facility]. awaiting EMS. lc8 Vital Signs: 03/04 21:57 BP 105 / 74; Pulse 136; Resp 19; Temp 103.1; Pulse Ox 100% on R/A; Weight 66.68 kg; kd3 23:00 BP 117 / 82; Pulse 108; Resp 17; Pulse Ox 100% on R/A; lc8 03/05 00:00 BP 112 / 66; Pulse 104; Temp 100.9(O); Pulse Ox 100% on R/A; lc8 02:00 BP 110 / 77; Pulse 98; Pulse Ox 98% on R/A; lc8 03:00 BP 117 / 74; Pulse 110; Resp 16; Pulse Ox 100% on R/A; lc8 05:00 BP 98 / 62; Pulse 91; Temp 98.6; Pulse Ox 99% on R/A; lc8 ED Course: 03/04 21:39 Patient arrived in ED. gm2 21:44 Antonieta Smith PA-C is PHCP. sb4 21:44 Sandeep Robles MD is Attending Physician. sb4 21:57 Arm band placed on right wrist. kd3 22:01 Triage completed. kd3 22:10 Patient has correct armband on for positive identification. Bed in low position. Call lc8 light in reach. Side rails up X 1. Adult w/ patient. 22:10 Provided Education on: course of ed visit. lc8 22:10 Inserted saline lock: 20 gauge in left antecubital area, using aseptic technique. Blood lc8 collected. 22:37 Kelsea De La Paz, RN is Primary Nurse. lc8 22:37 CBC with Diff Sent. lc8 22:37 CMP Sent. lc8 22:37 Lactate w/ 2H reflex if indic. Sent. lc8 22:37 Protime (+inr) Sent. lc8 22:37 Ptt, Activated Sent. lc8 22:39 Chest Single View XRAY In Process Unspecified. EDMS 22:47 Blood Culture Adult (2) Sent. lc8 22:53 Strep Sent. 8 03/05 00:12 CT Head Brain wo Cont In Process Unspecified. EDMS 00:12 CT Chest, Abdomen, Pelvis - W/Contrast In Process Unspecified. EDMS 02:30 [facility] called to initiate transfer, spoke with Mary. ty 04:43 [facility] called for transport ETA 20 Minutes. ty 05:00 No provider procedures requiring assistance completed. 8 05:00 Patient transferred, IV remains in place. lc8 Administered Medications: 03/04 22:45 Drug: Acetaminophen PO 1000 mg PO once Route: PO; lc8 03/05 00:00 Follow up: Response: Temperature is decreased [facility] 03/04 22:47 Drug: NS 0.9% IV (30 ml/kg) 30 ml/kg IV at bolus once; Sepsis Protocol Route: IV; Rate: lc8 bolus; Site: left antecubital; 03/05 00:00 Follow up: IV Status: Completed infusion; IV Intake: 2000ml 8 03/04 23:35 Drug: Cefepime IVPB 1 grams IVPB at 200 ml/hr once over 30 mins; (mix in NS 100 mL) lc8 Route: IVPB; Rate: 200 ml/hr; Infused Over: 30 mins; Site: left antecubital; 03/05 00:00 Follow up: Response: No adverse reaction; IV Status: Completed infusion lc8 00:00 Drug: vancoMYCIN IVPB 1 grams IVPB once over 2 hrs Route: IVPB; Infused Over: 2 hrs; 8 Site: left antecubital; 01:30 Follow up: Response: No adverse reaction; IV Status: Completed infusion; IV Intake: lc8 250ml 02:22 Drug: Ibuprofen PO 800 mg PO once Route: PO; 8 03:30 Follow up: Response: Temperature is decreased [facility] 02:22 Drug: NS 0.9% IV 1000 ml IV at 125 ml/hr continuous Route: IV; Rate: 125 ml/hr; Site: [facility] left antecubital; Medication: 05:00 VIS not applicable for this client. 8 Intake: 00:00 IV: 2000ml; Total: 2000ml. 8 01:30 IV: 250ml; Total: 2250ml. [facility] Outcome: 01:51 ER care complete, transfer ordered by MD. reyes 05:15 Transferred by [facility]. to other acute care facility: [address] Transfer form completed. X-rays sent w/ patient. 05:15 Condition: stable 05:15 Instructed on the need for transfer, 05:19 Patient left the ED. [facility] Signatures: Dispatcher [facility] EDOR Jesica Melara RN RN [email or web address] Antonieta Smith PAYaritza PA-Swati [email or web address] Suzanne Fonseca Tylor ty Clark, LaBrisha, RN RN [facility] Corrections: (The following items were deleted from the chart) 03/04 23:00 22:53 COVID-19/FLU A+B/RSV+MOL.LAB.BRZ drawn and sent. [facility] EDOR 03/05 05:13 05:00 BP 95 / 62; Pulse 91bpm; Pulse Ox 99% RA; Temp 98.6F; lc8 lc8
[2024-03-05] MEDS ORDERED: IBUPROFEN 200 MG TAB PO ONE (02:11)
[2024-03-05] MEDS ORDERED: NA CHLORIDE 0.9% 1,000 ML ONE (02:11)
[2024-03-05 05:49] VITALS: BP 98/62; TEMP 98.6
[2024-03-05 05:50] VITALS: O2SAT 99
--- NOTE | 2024-03-05 13:23 | RAD REPORT ---
EXAM DESCRIPTION: CT - Head Brain Wo Cont - 03/05/2024 7:01 am CLINICAL HISTORY: 23 years Male, fever;Headache TECHNIQUE: Helical CT axial images are obtained from the base of skull through the vertex without IV contrast. Multiplanar reconstruction. This exam was performed according to our departmental dose-opt imization program, which includes automated exposure control, adjustment of the mA and/or kV accordin g to patient size and/or use of iterative reconstruction technique. COMPARISON: None. FINDINGS: BRAIN: No infarcts. No parenchymal hemorrhage, intra-axial mass, mass effect, or midline s hift. No abnormal extra-axial fluid collections. VENTRICLES: Ventricles are normal in size and configuration. No hydrocephalus. CALVARIUM: Bone windows show no skull fracture or calvarial lesions. PARANASAL SINUSES AND MASTOIDS: Clear paranasal sinuses. Mastoid air cells are clear. IMPRESSION: 1. No acute intracranial disease. Electronically signed by: Juan Patel MD 03/05/2024 12:41 AM CDT RP N Due to temporary technical issues with the PACS/Fluency reporting system, reports are being signed by the in house radiologists without review as a courtesy to insure prompt reporting. The interpreting radiologist is fully responsible for the content of the report.
--- NOTE | 2024-03-05 13:25 | RAD REPORT ---
EXAM DESCRIPTION: CT - Chest Abdomen Pelvis W Cont - 03/05/2024 7:01 am CLINICAL HISTORY: 23 years Male fever, sepsis. TECHNIQUE: CT imaging of the chest, abdomen and pelvis with intravenous contrast administration. Sag ittal and coronal reconstructed images were performed. The CT study is performed according to ALARA ( as low as reasonably achievable) or ALARA/IMAGE GENTLY, with automatic adjustment of mA and/or kV acc ording to patient size. Performed on: 03/05/2024 at 12:17 AM COMPARISON: CT abdomen and pelvis report from 10/15/2023. The images were not available for review FINDINGS: CHEST: Lungs: Lungs are well expanded and are clear. There are no pleural effusions. There is no pneumothora x. The central airways are patent. Heart: The heart is normal in size. There is no pericardial effusion. There is a right subclavian central venous catheter which terminates at the cavoatrial junction. Mediastinum: There is an approximately 4.2 x 2.7 x 4.4 cm nonenhancing, slightly heterogeneous soft t issue mass along the right anterior mediastinum just above the right atrium. In light of the patient' s reported clinical history of lymphoma this likely represents lymphadenopathy. There is an approxima tely 1.9 x 1.4 cm right paratracheal lymph node (series 301, image 17). The mediastinal vessels are n ormal in caliber and contour. Bones: No acute osseous abnormalities are identified. Soft tissues: No focal soft tissue abnormalities are identified. Lymphadenopathy: No definite hilar or axillary lymphadenopathy is identified. The visualized suprac lavicular and infraclavicular regions are grossly unremarkable. As noted above, there is mediastinal lymphadenopathy. ABDOMEN/PELVIS: Liver: The liver is normal in size and configuration. No focal hepatic abnormalities are identified. Liver attenuation is within normal limits. Spleen: The spleen is normal in size, configuration and attenuation. Gallbladder and bile duct: The gallbladder is well distended and unremarkable. There is no biliary ductal dilatation. Pancreas: The pancreas is grossly normal in size and configuration. Adrenal Glands: The adrenal glands are normal in size and configuration. Kidneys: The kidneys are normal in size and configuration. There is no evidence of hydronephrosis. Th ere is no evidence of nephrolithiasis. No definite solid or cystic renal mass lesions are identified. Stomach: The stomach is grossly normal. There is no definite hiatal hernia. Bowel: The bowel gas pattern is non specific and non obstructive. There is some liquid feces in the a scending colon which is nonspecific but can be seen with enteritis. Appendix: There is no CT evidence to suggest acute appendicitis. Free air: There is no evidence of free air. Free fluid: There is no evidence of free fluid. Vasculature: The aorta is normal in caliber and contour. The inferior vena cava is grossly unremarkab le. Lymphadenopathy: No pathologic lymphadenopathy is identified. Bladder: The bladder is well distended and smooth in contour. Reproductive: The prostate gland is grossly within normal limits. Bones: No acute osseous abnormalities are identified. Soft tissues: No focal soft tissue abnormalities are identified. IMPRESSION: CT CHEST: 1. There is an approximately 4.2 x 2.7 x 4.4 cm nonenhancing, slightly heterogeneous soft tissue ma ss along the right anterior mediastinum just above the right atrium. In light of the patient's report ed clinical history of lymphoma this likely represents lymphadenopathy. A similar, although larger fi nding was reported on the prior study from 10/15/2023. 2. There is an approximately 1.9 x 1.4 cm right paratracheal lymph node. 3. No evidence of acute intrathoracic disease. CT SCAN ABDOMEN AND PELVIS: 1. No evidence of acute intra-abdominal or intrapelvic pathology. 2. There is some liquid feces in the ascending colon which is nonspecific but can be seen with ente ritis. 3. The previous CT chest, abdomen and pelvis images and PET/CT images from September 2023 were not av ailable for review. Electronically signed by: Nerissa Maza DO 03/05/2024 01:38 AM [facility] Due to temporary technical issues with the PACS/Fluency reporting system, reports are being signed by the in house radiologists without review as a courtesy to insure prompt reporting. The interpreting radiologist is fully responsible for the content of the report.
--- NOTE | 2024-03-05 13:26 | RAD REPORT ---
EXAM DESCRIPTION: RAD - Chest Single View - 03/04/2024 10:37 pm CLINICAL HISTORY: CHEST PAIN COMPARISON: None TECHNIQUE: Single AP view of the chest. FINDINGS: Right-sided Port-A-Cath tip in the superior cavoatrial junction. Lung volumes adequate. Cardiac silhouette is normal in size. No pneumothorax. No large pleural effusion. No focal consolidation. No acute bony finding. IMPRESSION: No acute cardiopulmonary findings. Electronically signed by: Enoc Yousif MD 03/04/2024 11:12 PM CDT Z9 Due to temporary technical issues with the PACS/Fluency reporting system, reports are being signed by the in house radiologists without review as a courtesy to insure prompt reporting. The interpreting radiologist is fully responsible for the content of the report.
--- NOTE | 2024-03-05 14:14 | EKG ---
Test Date: 2024-03-04 Test Time: 22:52:10 Solution Designer: VANESSA MEASUREMENT RESULTS: Intervals: Rate: 123 CT: 112 QRSD: 94 QT: 324 QTc: 463 [place]: P: 69 CT: 112 QRS: 61 T: 49 INTERPRETIVE STATEMENTS: Sinus tachycardia Otherwise normal ECG Compared to ECG 03/04/2024 22:30:12 No significant changes Electronically Signed On 03-05-24 14:11:15 CDT by Wiley Smith
== END 2024-03-05 05:19 | disposition short-term general hospital (02) ==
LOC: ER 21:34
DX: R50.9 Fever, unspecified (principal); D72.829 Elevated white blood cell count, unspecified; C85.90 Non-Hodgkin lymphoma, unspecified, unspecified site; Z11.52 Encounter for screening for COVID-19
CPT/HCPCS: 36415; 70450; 71045; 71260; 74177; 80053; 81001; 83605; 85025; 85610; 85730; 87040; 87070; 87081; 87804; 87811; 93005; J0692; J7030; J7050; Q9967